=== PATIENT | female | born 1935 | race African-American/Black ===

== ENCOUNTER 2023-06-02 21:01 | Emergency (ER) | payer OTHER, MEDICARE, MEDICAID ==
[~2023-06-02] VITALS: Ht 165.1 cm; Wt 82.0 kg
[~2023-06-02 21:01] MED LIST: ADV50250 IH; BENA40TA73 PO; CARV12.5 PO; DILT60CA2 PO; FURO-150 PO; GABA-338 PO; INSU100V36 SQ; IPRA12.94 IH; ISOS10TA54 PO; LANTUS SQ; NITR0.4T51 SL; OMEP-84 PO; ONDA4TAB6 PO; POTA-188 PO; SIN25C PO; SYN0.075T PO
[2023-06-02 21:06] VITALS: BP 136/62; PULSE 64; TEMP 97.6; O2SAT 98
[2023-06-02] MEDS: morphine 4 MG/ML inj SYRINge IV ONE (22:29)
[2023-06-02 22:30] VITALS: RESP 16
[2023-06-02] MEDS: HYDROcodone/acetaminophen 10/325mg tab PO ONE (22:30)
[2023-06-02] MEDS: CefTRIAXone 500MG IM Kit w/LIDOcaine (for pt below or = to 150kg) IM ONE (23:43)
[2023-06-02] MEDS: metroNIDAZOLE 500mg tablet PO SCH (23:57)
[2023-06-02] MEDS: DOXYCYCLINE 100MG CAPSULE PO SCH (23:57)
[2023-06-03 00:52] LABS: BILIRUBIN,URINE NEGATIVE (Neg); CLARITY,URINE CLEAR (Clear); COLOR,URINE YELLOW (Yellow); GLUCOSE, URINE NEGATIVE (Neg); KETONES,URINE NEGATIVE (Neg); LEUKOCYTE ESTERASE ,URINE NEGATIVE (Neg); NITRITES, URINE NEGATIVE (Neg); OCCULT BLOOD,URINE NEGATIVE (Neg); PH,URINE 5.5 (4.8-8.0); PROTEIN,URINE NEGATIVE (Neg); UA COLLECTION TYPE FOLEY CATH; UROBILINOGEN,URINE 0.2 E.U/dL (0.2-1.0)
== END 2023-06-03 00:20 | disposition short-term general hospital (02) ==
LOC: EEVIPCON 21:01 → MERGE 21:01 → ER 21:01
DX: T76.21XA Adult sexual abuse, suspected, initial encounter (principal); E78.00 Pure hypercholesterolemia, unspecified; J45.909 Unspecified asthma, uncomplicated; I10 Essential (primary) hypertension; K21.9 Gastro-esophageal reflux disease without esophagitis; E03.9 Hypothyroidism, unspecified; F32.A Depression, unspecified; Z79.899 Other long term (current) drug therapy; Y93.89 Activity, other specified; Y92.89 Other specified places as the place of occurrence of the external cause; Y99.8 Other external cause status
CPT/HCPCS: 81003; 96372; 96374; 99285; J0696; J2270; A4314; C1758